=== PATIENT | female | born 1985 | race African-American/Black ===

== ENCOUNTER 2019-09-23 17:53 | Emergency (ER) | payer MEDICAID ==
[~2019-09-23] VITALS: Ht 152 cm; Wt 68.2 kg
[~2019-09-23 17:53] MED LIST: CYCL10TA9 PO; DULO60CA6; LOVENOX; MGX400T PO; MORP15TA30 PO; MORP30CA15 PO; NAPR550T PO; PNV91TAB3 PO; SENN15TA PO
[2019-09-23 17:55] VITALS: BP 131/83
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
--- NOTE | 2019-09-23 18:46 | Diagnostic Imaging Report ---
PROCEDURE: CT head and CT cervical spine without contrast. TECHNIQUE: Multiple contiguous axial images were obtained through the brain and cervical spine without the use of intravenous contrast. Sagittal and coronal reformations through the cervical spine were then performed. Auto Exposure Controls were utilized during the CT exam to meet ALARA standards for radiation dose reduction. INDICATION: Fall and hit head last night. COMPARISON: None available. FINDINGS: Head: No hyperdense hemorrhage or space-occupying mass. No hydrocephalus or midline shift. No evidence of territorial infarct. Basilar cisterns are patent. No focal scalp swelling. No skull fracture. The paranasal sinuses and mastoid air cells are clear. Cervical spine: No acute fracture or traumatic malalignment. No high-grade spinal canal or neural foraminal narrowing. Airway is patent. No cervical lymphadenopathy. Visualized thyroid is normal. Multifocal dental caries. IMPRESSION: 1. No acute intracranial process. 2. No acute fracture or traumatic malalignment of the cervical spine. Dictated by: Dictated on workstation # [id number]
[2019-09-23] MEDS ORDERED: ONDA4TAB11 PO (19:04)
== END 2019-09-23 18:51 | disposition home or self-care (01) ==
LOC: EDUNIT# 17:53 → ER 17:54
DX: S09.90XA Unspecified injury of head, initial encounter (principal); F17.200 Nicotine dependence, unspecified, uncomplicated; W11.XXXA Fall on and from ladder, initial encounter
CPT/HCPCS: 70450; 72125; 99282

== ENCOUNTER 2019-10-19 20:02 | Emergency (ER) | payer MEDICAID ==
[~2019-10-19] VITALS: Ht 152 cm; Wt 68.0 kg
[~2019-10-19 20:02] MED LIST changes: +ONDA4TAB11 PO
[2019-10-19] MEDS ORDERED: PENI500T PO (20:48)
--- NOTE | 2019-10-19 20:48 | ED Abdominal Pain ---
General Chief Complaint: Bite-Animal/Human/Insect Stated Complaint: R RING FINER MOUSE BITE Source of Information: Patient Exam Limitations: No Limitations History of Present Illness Date Seen by Provider: Oct 19, 2019 Time Seen by Provider: 20:36 Initial Comments 34-year-old female patient presents with complaints of a mouse bite to the right ring finger. Patient states 2 days ago she was sleeping on the couch and woke up to a mouse biting her right fourth finger. Patient denies taking anything [id number] for the pain. Denies fever or redness. Timing/Duration: 1-2 Days, Constant Severity/Quality: Aching Modifying Factors: Worsens With Palpation Allergies and Home Medications Allergies Coded Allergies: No Known Drug Allergies (Unverified , 07/25/10) Home Medications Ondansetron 4 Mg Tab.rapdis, 4 MG PO Q6H PRN for NAUSEA/VOMITING Prescribed by: HERBERTH GIBSON on 09/23/191903 Penicillin V Potassium 500 Mg Tablet, 500 MG PO TID Prescribed by: GASTON MARROQUIN on 10/19/192047 Patient Home Medication List Home Medication List Reviewed: Yes Review of Systems Review of Systems Constitutional: No chills, No diaphoresis, No fever, No malaise Respiratory: No Symptoms Reported Cardiovascular: No Symptoms Reported Musculoskeletal: see HPI Skin: see HPI Psychiatric/Neurological: No Symptoms Reported All Other Systems Reviewed Negative Unless Noted: Yes (Negative excepted noted.) Past Xprefje-Yzxsnq-Ewltrw Hx Past Med/Social Hx: Reviewed Nursing Past Med/Soc Hx Patient Social History Recent Foreign Travel: No Contact w/Someone Who Travel: No Recent Hopitalizations: No Immunizations Up To Date Tetanus Booster (TDap): Less than 5yrs (patient states she received a tetanus vaccination within the last 19 months while she was incarcerated in group home) Seasonal Allergies Seasonal Allergies: No Past Medical History Surgeries: No Respiratory: No Cardiac: No Neurological: No Genitourinary: No Gastrointestinal: No Musculoskeletal: No Endocrine: No HEENT: No Cancer: No Integumentary: No Family Medical History Reviewed Nursing Family Hx No Pertinent Family Hx Physical Exam Vital Signs Capillary Refill : Height/Weight/BMI Height: 5'0.00" Weight: 146lbs. 6.0oz. 66.358966on; 29.00 BMI Method:Stated General Appearance: WD/WN, no apparent distress Respiratory: lungs clear, normal breath sounds, no respiratory distress, no accessory muscle use Cardiovascular: normal peripheral pulses, regular rate, rhythm, no edema, no murmur Peripheral Pulses: 2+ Radial Pulses (R), 2+ Radial Pulses (L) Neurologic/Psychiatric: no motor/sensory deficits, alert, normal mood/affect, oriented x 3 Skin: normal color (no evidence of cellulitis), warm/dry, other (one small puncture wound noted to the left distal fourth lateral finger without cellulitis, drainage, or ecchymosis. Mild soft tissue tenderness noted at the site of the puncture.) Departure Communication (Admissions) Patient seen and evaluated. Plan for discharge to home with a prescription for penicillin. Impression Primary Impression: Bite by animal Disposition: HOME, SELF-CARE Condition: Improved Departure-Patient Inst. Decision time for Depature: 20:46 Referrals: [facility] [place] ([place]P) Primary Care Physician GABRIEL ALMODOVAR (Family) Primary Care Physician Patient Instructions: Animal Bites (DC) Add. Discharge Instructions: All discharge instructions reviewed with patient and/or family. Voiced understanding. Medications as instructed. Tylenol extra strength [id number] as directed for pain. Ibuprofen 800 mg by mouth every 8 hours as needed for pain. Ice pack as needed. Follow-up with your family practitioner for recheck as outpatient. Return to the emergency department for worsened symptoms or any other concerns. Scripts Penicillin V Potassium (Penicillin V Potassium) 500 Mg Tablet 500 MG PO TID, #21 TAB 0 Refills Prov: GASTON MARROQUIN 10/19/19 GASTON MARROQUIN Oct 19, 2019 20:48
[2019-10-19 20:57] VITALS: BP 132/80
== END 2019-10-19 20:59 | disposition home or self-care (01) ==
LOC: EDUNIT# 20:02 → ER 20:04
DX: S61.235A Puncture wound without foreign body of left ring finger without damage to nail, initial encounter (principal); W53.01XA Bitten by mouse, initial encounter
CPT/HCPCS: 99283

== ENCOUNTER 2022-09-26 02:40 | Emergency (ER) | payer MEDICAID ==
[~2022-09-26 02:40] MED LIST changes: +PENI500T PO
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
[2022-09-26] MEDS ORDERED: KETOROLAC 60 MG/2 ML VIAL IM ONE (03:15)
[2022-09-26 03:40] VITALS: BP 137/86
== END 2022-09-26 03:40 | disposition home or self-care (01) ==
LOC: EDUNIT# 02:40 → ER 02:44
DX: S39.012A Strain of muscle, fascia and tendon of lower back, initial encounter (principal); S00.11XA Contusion of right eyelid and periocular area, initial encounter; S70.01XA Contusion of right hip, initial encounter; S70.11XA Contusion of right thigh, initial encounter; F17.210 Nicotine dependence, cigarettes, uncomplicated; Z28.310 Unvaccinated for COVID-19; W01.0XXA Fall on same level from slipping, tripping and stumbling without subsequent striking against object, initial encounter
CPT/HCPCS: 99284